=== PATIENT | male | born 1940 | race Two or more races ===

== ENCOUNTER 2022-01-08 05:35 | Day surgery (SDC) | payer OTHER ==
[~2022-01-08] VITALS: Ht 172.7 cm; Wt 79.8 kg
[~2022-01-08 05:35] MED LIST: CARVEDILOL25 MG; CYMBALTA30 MG PO; MICRO-K 1010 MEQ PO; PRESERVISION A1 EAC1 PO; PROCARDIA XL; TAMS0.4C PO; TRILEPTAL150 MG PO
[2022-01-08] MEDS ORDERED: PERCOCET 5-3251 EACH PO (09:06)
== END 2022-01-08 16:35 | disposition home or self-care (01) ==
LOC: CIR.AMB 05:35
PROVIDERS: ATTEND Surgery
DX: K64.8 Other hemorrhoids (principal); K64.4 Residual hemorrhoidal skin tags; K62.5 Hemorrhage of anus and rectum; K21.9 Gastro-esophageal reflux disease without esophagitis; Z20.822 Contact with and (suspected) exposure to COVID-19; Z86.010 Personal history of colon polyps

== ENCOUNTER 2022-01-08 20:54 | Emergency (ER) | payer OTHER ==
[~2022-01-08] VITALS: Ht 172.7 cm; Wt 79.8 kg
[~2022-01-08 20:54] MED LIST changes: +PERCOCET 5-3251 EACH PO
== END 2022-01-08 22:13 | disposition home or self-care (01) ==
LOC: ER 20:54
DX: R33.9 Retention of urine, unspecified (principal)

== ENCOUNTER 2024-10-17 06:00 | Day surgery (SDC) | payer OTHER ==
[2024-10-13 08:58] VITALS: BP 182/75
[2024-10-13 09:27] LABS: BASO % 0.5 % (0.1-1.2); EOS # 0.22 (0.04-0.54); EOS % 3.0 % (0.7-7.0); LYMPH # 1.01 (1.18-3.74); LYMPH % 13.8 % (19.3-53.1); MEAN PLATELET VOLUME 11.60 fl (9.4-12.4); MONO # 0.63 (0.24-0.82); MONO % 8.6 % (4.7-12.5); NEUT # 5.41 (1.56-6.13); NEUT % 73.8 % (34.0-71.1); RED CELL DISTRIBUTION WIDTH 13.7 % (11.6-14.4); URINE APPEARANCE Clear; URINE BILIRRUBIN Negative (NEGATIVE); URINE BLOOD Negative; URINE COLOR Yellow; URINE GLUCOSE Negative (NEGATIVE); URINE KETONE Trace (NEGATIVE); URINE LEUKOCYTE Trace; URINE NITRATE Negative; URINE UROBILINOGEN 1.0 E.U./dl
[2024-10-13 09:30] LABS: URINE EPITHELIAL CELLS 1.6 uL (0.0-38.8); URINE RBC 2.3 uL (0.0-20.8); URINE WBC 13.0 uL (0.0-23.2)
[2024-10-13 09:51] LABS: INR 1.06
[2024-10-13 09:56] LABS: ALT/SGPT 21.0 U/L (12-78); AST/SGOT 18.0 U/L (15-37); BILIRUBIN TOTAL 0.92 mg/dL (0.3-1.2); BUN CREA RATIO 18.0 (7.0-25.0); CREATININE SERUM 0.95 mg/dL (0.70-1.30); GFR 75.35; GLOBULINA 3.8 G/DL (2.4-3.5); GLUCOSE FASTING 102.0 mg/dL (65-100); OSMOLALITY SERUM 287.0 MOSM/KG (275-295)
[2024-10-13 10:01] LABS: URINE BACTERIA 1.1 uL (0.0-1933); URINE CAST 0.29 uL (0.0-1.40); URINE PROTEIN 100 (NEGATIVE)
[~2024-10-17] VITALS: Ht 170.2 cm; Wt 81.6 kg
[~2024-10-17 06:00] MED LIST changes: +ATORVASTATIN CA40 MG; +AVAPRO300 MG; +KLOR-CON M1010 MEQ; +OXYBUTYNIN 10 MG
[2024-10-17] MEDS ORDERED: BUPIVACAINE HCL 30 ML VIAL IJ ONE (09:00)
[2024-10-17] MEDS ORDERED: ISOPROPYL ALCOHOL 30 ML OUNCE TOP ONE (09:00)
[2024-10-17] MEDS ORDERED: CEFAZOLIN SODIUM 1,000 MG VIAL IV ONE (09:00)
[2024-10-17] MEDS ORDERED: SUGAMMADEX SODIUM 200 MG/2 ML VIAL IV ONE (10:00)
[2024-10-17] MEDS ORDERED: MORPHINE SULFATE 4 MG/ML VIAL IV ONE ×2 (11:25→11:55)
== END 2024-10-17 14:25 | disposition home or self-care (01) ==
LOC: CIR.AMB 06:00
PROVIDERS: ATTEND Orthopaedic Surgery Hand Surgery
DX: S52.532A Colles' fracture of left radius, initial encounter for closed fracture (principal); M24.532 Contracture, left wrist; M67.832 Other specified disorders of synovium, left wrist
CPT/HCPCS: 25609; 25118; 25280; L8699